=== PATIENT | female | born 1990 | race Caucasian/White ===

== ENCOUNTER 2022-04-24 20:00 | Emergency (ER) | payer SELFPAY ==
[~2022-04-24] VITALS: Ht 165.1 cm; Wt 96.8 kg
[2022-04-24 20:14] VITALS: BP 144/85
[2022-04-24 21:32] LABS: Basophils # (auto) 0 10 ^3/uL (0-0.2); Basophils % (auto) 0.3 % (0.0-2.0); Eosinophils # (auto) 0 10 ^3/uL (0-0.8); Eosinophils % (auto) 0.2 % (0.0-7.0); Hematocrit 41.2 % (36.0-46.0); Hemoglobin 14.3 g/dL (12.2-16.2); Lymphocytes # (auto) 1.3 10 ^3/uL (0.4-5.4); Lymphocytes % (auto) 9.2 % (10.0-50.0); Mean Corpuscular Hgb Conc. 34.7 g/dL (32.0-36.0); Mean Corpuscular Volume 83.4 fL (80.0-100.0); Monocytes # (auto) 0.6 10 ^3/uL (0-1.3); Monocytes % (auto) 4.4 % (0.0-12.0); Neutrophils # (auto) 11.9 10 ^3/uL (1.6-8.6); Neutrophils % (auto) 85.9 % (37.0-80.0); Red Blood Cells 4.94 10^6/uL (4.0-5.20); Red Cell Distribution Width 12.9 % (11.8-14.3); White Blood Cell 13.8 10^3/uL (4.4-10.8)
[2022-04-24 22:03] LABS: Albumin 4.1 g/dL (3.4-5.0); Potassium 3.9 mmol/L (3.5-5.1)
[2022-04-24 22:05] LABS: BUN/Creatinine Ratio 14.5
[2022-04-24 22:08] LABS: Bilirubin, Total 1.2 mg/dL (0.2-1.0); Total Protein 7.5 g/dL (6.4-8.2)
== END 2022-04-25 03:04 | disposition left against medical advice (07) ==
LOC: ER 20:00
DX: R10.30 Lower abdominal pain, unspecified (principal); R11.2 Nausea with vomiting, unspecified; R19.7 Diarrhea, unspecified; Z53.21 Procedure and treatment not carried out due to patient leaving prior to being seen by health care provider
CPT/HCPCS: 36415; 80053; 83690; 85025